=== PATIENT | female | born 1990 ===

== ENCOUNTER 2017-06-26 10:09 | Emergency (ER) | payer BC ==
[2017-06-26 11:12] VITALS: BP 156/82
[2017-06-26] MEDS ORDERED: Albuterol HFA INHALER* 8 gm MDI INH ONE (11:54)
--- NOTE | 2017-06-26 11:59 | UC ---
Respiratory Complaint HPI - HPI Summary HPI Summary: 27 yo female c/o progressive cough, congestion for the last 2 weeks. Not get better, started in sinus area, has moved to chest. Typically doesn't have fevers. No hx asthma. - History of Current Complaint Chief Complaint: UCRespiratory Stated Complaint: COUGH WHEEZING CONGESTION Time Seen by Provider: 06/26/17 11:46 Hx Obtained From: Patient Hx Last Menstrual Period: prior to miscarriage on 06/03/17 - Allergies/Home Medications Allergies/Adverse Reactions: Allergies Allergy/AdvReac Type Severity Reaction Status Date / Time Cefaclor [From [facility]] Allergy Mild Hives Verified 06/26/17 11:06 Home Medications: Home Medications Olopatadine 0.1% OPHTH (NF) [Patanol 0.1% OPHTH (NF)] 1 drop BOTH EYES DAILY 11/06 [History Confirmed 06/26/17] PMH/Surg Hx/FS Hx/Imm Hx - Surgical History Surgical History: None - Social History Alcohol Use: Occasionally Substance Use Type: None Smoking Status (MU): Never Smoked Tobacco - Immunization History Most Recent Influenza Vaccination: 2017 Review of Systems Constitutional: Fatigue Skin: Negative Eyes: Negative ENT: Nasal Discharge, Sinus Congestion Respiratory: Cough Cardiovascular: Negative Gastrointestinal: Negative Genitourinary: Negative Motor: Negative Neurovascular: Negative Musculoskeletal: Negative Neurological: Negative Psychological: Negative Is Patient Immunocompromised?: No All Other Systems Reviewed And Are Negative: Yes Physical Exam Triage Information Reviewed: Yes Appearance: Well-Nourished - sitting up, conversing easily and appropriately nontoxic. coughing. Vital Signs: Initial Vital Signs Temp 98.1 F 06/26/17 11:08 Pulse 80 06/26/17 11:08 Resp 20 06/26/17 11:08 BP 156/82 06/26/17 11:08 Pulse Ox 98 06/26/17 11:08 Eye Exam: Normal ENT: Positive: Pharyngeal erythema - mild post phar redness, no sores, uvula midline, Nasal congestion, TM dull Neck exam: Normal Neck: Positive: Supple, Nontender, No Lymphadenopathy Respiratory: Positive: Chest non-tender, No accessory muscle use, Rhonchi, Wheezing Cardiovascular Exam: Normal Cardiovascular: Positive: RRR, No Murmur, Pulses Normal, Brisk Capillary Refill Abdominal Exam: Normal Abdomen Description: Positive: Nontender Musculoskeletal Exam: Normal Neurological Exam: Normal - nonfocal Psychological Exam: Normal Skin Exam: Normal UC Diagnostic Evaluation - Laboratory O2 Sat by Pulse Oximetry: 98 Respiratory Course/Dx - Course Course Of Treatment: chest xray - NAD (reviewed xray, reviewed report with pt). albuterol inh - RN teaching - did well. Reviewed coa / tx plan with Ms. Sprague. Questions as posed answered to the best of my ability. - Differential Dx/Diagnosis Provider Diagnoses: Acute bronchitis. Bronchospasm Discharge - Discharge Plan Condition: Stable Disposition: HOME Referrals: Cuauhtemoc Coyle MD [Primary Care Provider] -
--- NOTE | 2017-06-26 12:27 | RAD ---
HISTORY: Cough, fever COMPARISONS: None VIEWS: 4: Frontal dual-energy and lateral views of the chest. FINDINGS: CARDIOMEDIASTINAL SILHOUETTE: The cardiomediastinal silhouette is normal. MILVIA: The milvia are normal. PLEURA: The costophrenic angles are sharp. No pleural abnormalities are noted. LUNG PARENCHYMA: The lungs are clear. ABDOMEN: The upper abdomen is clear. There is no subphrenic gas. BONES AND SOFT TISSUES: No bone or soft tissue abnormalities are noted. OTHER: None. IMPRESSION: NO ACTIVE CARDIOPULMONARY DISEASE.
== END 2017-06-26 12:52 | disposition home or self-care (01) ==
LOC: UCCORT 10:09
DX: J20.9 Acute bronchitis, unspecified (principal); Z88.1 Allergy status to other antibiotic agents
CPT/HCPCS: 71046; 99203; A9270-GY; G0463